=== PATIENT | male | born 1985 | race Hispanic/Latino ===

== ENCOUNTER 2021-08-13 16:08 | Emergency (ER) | payer OTHER ==
[~2021-08-13] VITALS: Ht 170.2 cm; Wt 91.2 kg
[2021-08-13 16:10] VITALS: BP 165/89
[2021-08-13] MEDS ORDERED: CLIN-141 PO (16:21)
[2021-08-13] MEDS ORDERED: ACET-2079 PO (16:21)
[2021-08-13] MEDS ORDERED: ACETAMINOPHEN WITH CODEINE 1 TAB TAB PO ONE (16:30)
[2021-08-13] MEDS ORDERED: CLINDAMYCIN 150 MG CAP PO ONE (16:30)
== END 2021-08-13 16:37 | disposition home or self-care (01) ==
LOC: EDH 16:08
DX: K03.81 Cracked tooth (principal); Z90.49 Acquired absence of other specified parts of digestive tract